=== PATIENT | female | born 1990 | race Caucasian/White ===

== ENCOUNTER 2025-04-07 07:28 | Day surgery (SDC) | payer BC ==
[2025-04-06 11:48] VITALS: BMI 27.2
[2025-04-07] MEDS ORDERED: PROPOFOL 40 ML ONE (08:50)
[2025-04-07] MEDS ORDERED: Lidocaine 1% PF 5 ML VIAL ONE (08:52)
[2025-04-07] MEDS ORDERED: Ketorolac Tromethamine 30 MG (1 mL) VIAL ONE (09:05)
[2025-04-07] MEDS ORDERED: Tranexamic Acid 1,000 MG/10 ML VIAL ONE (09:43)
[2025-04-07] MEDS ORDERED: Methylergonovine 0.2 MG/ML VIAL ONE (09:43)
[2025-04-07] MEDS ORDERED: CEFAZOLIN 2 GM VIAL ONE (09:53)
[2025-04-07] MEDS ORDERED: Silver Nitrate Application 1 EACH ONE (10:18)
[2025-04-07] MEDS ORDERED: Methylergonovine 0.2 MG TAB PO SCH (11:30)
== END 2025-04-07 11:44 | disposition home or self-care (01) ==
LOC: CSHSDC 07:28
PROVIDERS: ATTEND Obstetrics & Gynecology
PROC: 10D17ZZ Extraction of Products of Conception, Retained, Via Natural or Artificial Opening (ICD-10-PCS; principal; 2025-04-07)
DX: O02.0 Blighted ovum and nonhydatidiform mole (principal); Z90.89 Acquired absence of other organs; Z79.899 Other long term (current) drug therapy
CPT/HCPCS: 88305; J1100; J1885; J2210; J2704